=== PATIENT | male | born 1955 | race Caucasian/White ===

== ENCOUNTER 2021-04-05 15:10 | Inpatient (IN) | payer OTHER ==
[~2021-04-05] VITALS: Ht 175.3 cm; Wt 104.3 kg
[~2021-04-05 15:10] MED LIST: ASPI325 PO; CLOP75 PO; IBUP800 PO; LIVALO2 MG PO; Nitroglycerin0.4 MG SL; OXYACE5T PO; ROSU10TA
[2021-04-05 15:25] LABS: Calcium, Ionized (POC) 0.95 mmol/L (1.10-1.46); Chloride (POC) 94 mmol/L (98-108); Glucose (ISTAT POC) 148 mg/dL (70-99); Hemoglobin (POC) 15.3 g/dL (13.5-17.5); Potassium (POC) 3.1 mmol/L (3.5-5.5); Sodium (POC) 130 mmol/L (135-148); Total CO2 (POC) 22 mmol/L (21-32)
[2021-04-05] MEDS ORDERED: LIVALO4 MG PO (15:33)
[2021-04-05] MEDS ORDERED: AMLO5 PO (15:33)
[2021-04-05 15:38] LABS: Hemoglobin 15.3 g/dL (13.5-17.5); Mean Corpuscular HGB 32.6 pg (26.0-34.0); Mean Corpuscular HGB Conc 35.6 g/dL (31.5-36.5); Mean Corpuscular Volume 92 fL (80-100); Mean Platelet Volume 10.7 fL (9.1-12.4); Platelet Count 207 K/mm3 (150-400); RDW Coefficient Variation 12.5 % (11.7-14.2); RDW Standard Deviation 41.6 fL (35.1-46.3); Red Blood Cell Count 4.69 M/mm3 (4.30-5.90); White Blood Cell Count 10.33 K/mm3 (4.00-11.30)
[2021-04-05 15:59] LABS: Base Excess Venous -1.1 mmol/L; Bicarbonate Venous 23.3 mmol/L (24.0-30.0); PO2 Venous 33.3 mmHg (38-42); pH Blood Venous 7.46 (7.34-7.37)
[2021-04-05 16:03] LABS: BAND PERCENT MAN 1 % (0-8); BASOPHILS PERCENT MAN 0 % (0-2); EOSINOPHILS PERCENT MAN 0 % (0-6); LYMPHOCYTES % ATYPICAL MANUAL 1 % (0-0); LYMPHOCYTES ABSOLUTE MAN 0.72 K/mm3 (0.84-5.20); LYMPHOCYTES PERCENT MAN 6 % (21-46); MONOCYTES PERCENT MAN 3 % (4-13); MYELOCYTE PERCENT MAN 1 % (0-0); NEUTROPHILS ABSOLUTE MAN 9.19 K/mm3 (1.96-9.15); SEG NEUTROPHILS PERCENT MAN 88 % (41-73); TOTAL CELLS COUNTED 100
[2021-04-05 16:07] LABS: Troponin I 0.149 ng/mL (0.000-0.040)
[2021-04-05 16:09] LABS: Alanine Aminotransfer (ALT/SGP 55 U/L (12-78); Albumin, Blood 2.5 g/dL (3.4-5.0); Albumin/Globulin Ratio 0.5 (0.8-1.8); Alk Phos 63 U/L (50-136); Anion Gap 17 mmol/L (6-16); Aspartate Aminotrans (AST/SGOT 61 U/L (12-37); Bilirubin, Total 1.4 mg/dL (0.1-1.0); Blood Urea Nitrogen 17 mg/dL (8-24); Bun/Creatinine Ratio 17.1 (12.0-20.0); CO2, Blood 18 mmol/L (21-32); Calcium, Blood 8.1 mg/dL (8.5-10.1); Chloride, Blood 95 mmol/L (98-108); Creatinine, Blood 0.99 mg/dL (0.60-1.20); Globulin, Blood 5.4 g/dL (2.2-4.0); Glomerular Filtration Rate >60 (60-); Glucose, Blood 144 mg/dL (70-99); Potassium, Blood 3.2 mmol/L (3.5-5.5); Sodium, Blood 130 mmol/L (136-145); Total Protein, Blood 7.9 g/dL (6.4-8.2)
[2021-04-05 17:14] LABS: SARS-Cov-2 (COVID-19) PCR, MMC POSITIVE (NEGATIVE)
[2021-04-05 17:35] LABS: International Normalized Ratio 1.51; Prothrombin Time Results 15.9 Sec (9.7-11.5)
[2021-04-05 19:56] LABS: CHOL/HDL RATIO 4.4; Cholesterol 106 mg/dL (50-200); HDL Cholesterol 24 mg/dL (>39); LDL/HDL RATIO 2.2; Low Density Lipoprotein Chol 52 mg/dL (0-110); Triglycerides 148 mg/dL (30-160); Very Low Density Lipoprot Chol 29 mg/dL (6-32)
[2021-04-06 00:18] LABS: BASOPHILS ABSOLUTE AUTO 0.01 K/mm3 (0.00-0.23); BASOPHILS PERCENT AUTO 0 % (0-2); EOSINOPHILS PERCENT AUTO 0 % (0-6); Hematocrit 36.1 % (37.0-53.0); Hemoglobin 12.6 g/dL (13.5-17.5); Mean Corpuscular HGB 32.1 pg (26.0-34.0); Mean Corpuscular HGB Conc 34.9 g/dL (31.5-36.5); Mean Corpuscular Volume 92 fL (80-100); Mean Platelet Volume 10.3 fL (9.1-12.4); Platelet Count 148 K/mm3 (150-400); RDW Coefficient Variation 12.5 % (11.7-14.2); RDW Standard Deviation 42.4 fL (35.1-46.3); Red Blood Cell Count 3.92 M/mm3 (4.30-5.90); White Blood Cell Count 6.26 K/mm3 (4.00-11.30)
[2021-04-06 00:22] LABS: IMMATURE GRAN ABSOLUTE AUTO 0.06 K/mm3 (0.00-0.10); IMMATURE GRAN PERCENT AUTO 1 % (0-1); LYMPHOCYTES ABSOLUTE AUTO 0.53 K/mm3 (0.84-5.20); LYMPHOCYTES PERCENT AUTO 9 % (21-46); MONOCYTES ABSOLUTE AUTO 0.45 K/mm3 (0.16-1.47); MONOCYTES PERCENT AUTO 7 % (4-13); NEUTROPHILS ABSOLUTE AUTO 5.21 K/mm3 (1.96-9.15); NEUTROPHILS PERCENT AUTO 83 % (41-73)
[2021-04-06 00:50] LABS: Alanine Aminotransfer (ALT/SGP 44 U/L (12-78); Albumin, Blood 2.2 g/dL (3.4-5.0); Albumin/Globulin Ratio 0.5 (0.8-1.8); Alk Phos 51 U/L (50-136); Anion Gap 5 mmol/L (6-16); Aspartate Aminotrans (AST/SGOT 42 U/L (12-37); Bilirubin, Total 0.8 mg/dL (0.1-1.0); Blood Urea Nitrogen 18 mg/dL (8-24); CO2, Blood 24 mmol/L (21-32); Calcium, Blood 7.2 mg/dL (8.5-10.1); Chloride, Blood 105 mmol/L (98-108); Globulin, Blood 4.1 g/dL (2.2-4.0); Glomerular Filtration Rate >60 (60-); Glucose, Blood 126 mg/dL (70-99); Potassium, Blood 4.2 mmol/L (3.5-5.5); Sodium, Blood 134 mmol/L (136-145); Total Protein, Blood 6.3 g/dL (6.4-8.2)
--- NOTE | 2021-04-06 07:44 | NUR ---
SHIFT SUMMARY A/O X4, VSS, ON BIPAP, DESATS QUICKLY WHEN OFF, PT SHAVED BY RT, ADMISSION COMPLETED, PT DENIES ANY NEEDS AT THIS TIME. NO ACUTE EVENTS THIS SHIFT. CALL LIGHT IN REACH, REPORT GIVEN TO DAY RN.
--- NOTE | 2021-04-06 10:07 | NUR ---
SPOKE WITH DR. JEFFERSON REGARDING PLAVIX AND HEPARIN USE. HE REPORTED OK TO GIVE PLAVIX IN ADDITION TO HEPARIN DRIP. DR. JEFFERSON REPORTED HE WOULD REVIEW THE REASON FOR CONTINUED PLAVIX USE. WILL CONTINUE TO MONITOR.
--- NOTE | 2021-04-06 11:23 | NUR ---
NOON ASSESSMENT PT WAS SWITCHED FROM BIPAP TO HIGH FLOW NC. PT HAS A DRY COUGHT, TESSLON GIVEN. LUNG SOUND RHONCHOROUS T/O. WILL CONTINUE TO MONITOR.
--- NOTE | 2021-04-06 13:46 | NUR ---
[facility] referral received for spiritual distress. Referral made to Software Recruiterkirstie Kerr, who is able to see pt today. Due to lack of staffing [facility] is unable to see pt today.
--- NOTE | 2021-04-06 14:50 | NUR ---
PT OFFERED TO REPOSITION TO PRONE POSITION FROM SUPINE. PT DECLINED AND REPORTED FEELING COMFORTABLE.
--- NOTE | 2021-04-06 16:46 | NUR ---
Visited with pt after rounding with doctor in the morning. Pt recieved news from doctor that was not positivie. In addition, pt's has cancer and they have a special needs attendant child activity for. Pt is atheist but was receptive to processing news from doctor and his 's health. Pt spoke about his beliefs and then spoke about his family. Circling back I repeated what he said and that I noticed his response this morning as I held the ipad. Pt shared in depth his real concern of if he dies first and how he wants his family to be taken care of in that time. Pt tearfully shared his worries and concerns. Pt recieved neutral prayer for his and current health. Pt is a [place] of 11 years.
[2021-04-06 17:38] LABS: Source, Urine Catheter
[2021-04-06 17:41] LABS: Appearance, Urine Hazy (Clear); Blood, Urine 2+ (Neg); Color, Urine Brown (P-Yellow); Glucose Qualitative, Urine Neg (Neg); Ketones, Urine 1+ (Neg); Leukocyte Esterase, Urine 1+ (Neg); Nitrite, Urine Pos (Neg); Protein, Urine 3+ (Neg); Urobilinogen, Urine 4+ (Normal)
[2021-04-06 17:48] LABS: Bilirubin, Urine 2+ (Neg)
[2021-04-06 17:56] LABS: Bacteria Mod /hpf
--- NOTE | 2021-04-06 18:00 | NUR ---
SHIFT SUMMARY PT WAS CHANGED TO HIGH FLOW NC TODAY AND HAS TOLERATED WELL. HIS RR IS INCREASING TO THE HIGH 20s TO 30s. PT HAS BEEN ENCOURAGED TO ATTEMPT PRONE POSITIONING BUT HAS DECLINED DURING THE DAY, PT EDUCATED TO TRY PRONE POSITIONING FOR SLEEP. JIANG CATHETER PLACED FOR URINARY RETENTION, 1700ML EMPTIED AND PT DECLINED URGE TO VOID. PT ATTEMPTED TO VOID PRIOR TO CATH PLACEMENT AND WAS UNSUCCESSFUL. VSS AT THIS TIME. WILL MONITOR UNTIL REPORT TO DELMA HITCHCOCK.
[2021-04-06 18:01] LABS: Renal Epithelial Rare /hpf (0-Rare); Transitional Epithelial Cells Rare /hpf (0-Rare)
[2021-04-06 18:02] LABS: Granular Casts Rare /lpf (0); Squamous Epithelial Cells Rare /hpf (Few); White Blood Cells, Urine 0-2 /hpf (0-5)
--- NOTE | 2021-04-07 06:39 | NUR ---
SHIFT SUMMARY A/O X4 BUT ANXIOUS, TRIED PRONING BUT PATIENTS SATS DROPPED AND HE PANICED, PLACED BACK ON HIS BACK AND HE WAS UNABLE TO GET HIGHER THAN 85%, CHANGED HIS AIRVO TO BIPAP AT PRIOR SETTINGS AND UPDATED RT, PT REPORTS FEELING ANX/SCARED ABOUT GOING TO SLEEP. JIANG IN PLACE DRAINING TO GRAVITY, OUTPUT APPEARS TO HAVE INCREASING AMOUNTS OF BLOOD PRESENT SO WILL MONITOR LABS. NO OTHER EVENTS THIS SHIFT. CALL LIGHT IN REACH, WILL CTM AND REPORT TO DAY RN.
[2021-04-07 17:00] LABS: Platelet Count 208 K/mm3 (150-400)
--- NOTE | 2021-04-07 17:41 | NUR ---
SHIFT SUMMARY COVID 19 PT AA0X4, CHANGED TO AIRVO THIS MORNING AND TOLERATING WELL. ABLE TO EAT, REPORTS APPETITE RETURNING. RED URINE IN CATHETER THIS AM, IMPROVING TO CRANBERRY COLORED THIS EVENING. PT CALLS APPROPRIATLY. DENIES SOB OR CP.
[2021-04-08 00:35] LABS: BASOPHILS ABSOLUTE AUTO 0.03 K/mm3 (0.00-0.23); BASOPHILS PERCENT AUTO 0 % (0-2); EOSINOPHILS ABSOLUTE AUTO 0.09 K/mm3 (0.00-0.68); EOSINOPHILS PERCENT AUTO 1 % (0-6); Hematocrit 36.2 % (37.0-53.0); Hemoglobin 12.7 g/dL (13.5-17.5); Mean Corpuscular HGB 32.6 pg (26.0-34.0); Mean Corpuscular HGB Conc 35.1 g/dL (31.5-36.5); Mean Corpuscular Volume 93 fL (80-100); Mean Platelet Volume 10.4 fL (9.1-12.4); Platelet Count 203 K/mm3 (150-400); RDW Coefficient Variation 12.6 % (11.7-14.2); RDW Standard Deviation 42.9 fL (35.1-46.3); Red Blood Cell Count 3.89 M/mm3 (4.30-5.90); White Blood Cell Count 7.28 K/mm3 (4.00-11.30)
[2021-04-08 00:36] LABS: IMMATURE GRAN ABSOLUTE AUTO 0.25 K/mm3 (0.00-0.10); IMMATURE GRAN PERCENT AUTO 3 % (0-1); LYMPHOCYTES ABSOLUTE AUTO 0.99 K/mm3 (0.84-5.20); LYMPHOCYTES PERCENT AUTO 14 % (21-46); MONOCYTES ABSOLUTE AUTO 0.35 K/mm3 (0.16-1.47); MONOCYTES PERCENT AUTO 5 % (4-13); NEUTROPHILS ABSOLUTE AUTO 5.57 K/mm3 (1.96-9.15); NEUTROPHILS PERCENT AUTO 77 % (41-73)
[2021-04-08 00:54] LABS: Alanine Aminotransfer (ALT/SGP 35 U/L (12-78); Albumin, Blood 2.2 g/dL (3.4-5.0); Albumin/Globulin Ratio 0.5 (0.8-1.8); Alk Phos 51 U/L (50-136); Anion Gap 7 mmol/L (6-16); Aspartate Aminotrans (AST/SGOT 31 U/L (12-37); Bilirubin, Total 0.5 mg/dL (0.1-1.0); Blood Urea Nitrogen 20 mg/dL (8-24); Bun/Creatinine Ratio 24.5 (12.0-20.0); CO2, Blood 27 mmol/L (21-32); Calcium, Blood 7.6 mg/dL (8.5-10.1); Chloride, Blood 101 mmol/L (98-108); Creatinine, Blood 0.82 mg/dL (0.60-1.20); Globulin, Blood 4.1 g/dL (2.2-4.0); Glomerular Filtration Rate >60 (60-); Glucose, Blood 92 mg/dL (70-99); Potassium, Blood 3.5 mmol/L (3.5-5.5); Sodium, Blood 135 mmol/L (136-145); Total Protein, Blood 6.3 g/dL (6.4-8.2)
--- NOTE | 2021-04-08 06:58 | NUR ---
SHIFT SUMMARY PATIENT IS RESTING COMFORTABLY IN BED. BED IS IN LOW POSITION. BED EXIT ALARM IS ON. CALL LIGHT IS IN REACH. PATIENT DID WELL LAST NIGHT. PATIENT IS ON BIPAP 06/23 75% FIO2 SATURATING >90%. NO COMPLAINTS OF PAIN. VITALS DEVON STABLE DURING THE SHIFT. REPORT GIVEN TO DAY SHIFT.
--- NOTE | 2021-04-08 12:25 | NUR ---
URINE COLOR this morning noted pale pink in the faust tubing, red in collection bag. AT this time, faust bag collection is pale pink, and urine draining in tubing is clear yellow, barely perceptible pink tinge. Spoke with pt about discontinuing faust after lunch, per conversation with Dr. Rangel and the pt this morning by Zoom call.
--- NOTE | 2021-04-08 18:23 | NUR ---
Pt was assisted back into bed after he finished his dinner. Stated that he was so tired from being up in the chair that he was falling asleep sitting up. Stand by assistance only to get back into bed. Dyspnea noted with exertion, while wearing AirVo, but spo2 90-93% immediately after the transfer. Stated that his nose felt plugged up. He blew his nose, and scant amount of blood tinged mucous came out, and he said that it was cleared up. One brief episode of anxiety dropped his spo2 to 83% when he thought that his call light was not within reach. Showed him that it was just beneath his elbow, and afterwards he was able to relax and spo2 improved rapidly back to above 90% without any additional changes to his oxygen delivery by the AirVo.
--- NOTE | 2021-04-09 06:37 | NUR ---
SHIFT SUMMARY PATIENT IS RESTING COMFORTABLY IN BED. BED IS IN LOW POSITION. CALL LIGHT IS IN REACH. PATIENT DID VERY WELL ON THE AIRVO STARTED AT 55L AT 70% AND IS NOT DOWN TO 55L ON 50% SATRATING ABOVE 90% THROUGHOUT THE WHOLE NIGHT. VITALS WERE STABLE. WILL GIVE REPORT TO DAYSHIFT RN.
--- NOTE | 2021-04-09 18:33 | NUR ---
SHIFT SUMMARY PT VITAL SIGNS ARE STABLE.. PT CONTINUES TO EXPRESS FEELINGS OF DEPPRESSION, AND REJECTS ANY IDEA OF MEDS FOR DEPRESSION TREATMENT.PT HAS HAD SEVERALBLOODY URINES. THE HOSPITALIST MD SALONI HAS DECIDED TO HOLD HEPARIN AND PLAVIX UNTIL MORNING. PHARMACY WAS MADE AWARE.
[2021-04-10 04:18] LABS: Hematocrit 36.4 % (37.0-53.0); Hemoglobin 12.7 g/dL (13.5-17.5); Mean Corpuscular HGB 32.4 pg (26.0-34.0); Mean Corpuscular HGB Conc 34.9 g/dL (31.5-36.5); Mean Corpuscular Volume 93 fL (80-100); Mean Platelet Volume 10.7 fL (9.1-12.4); Platelet Count 236 K/mm3 (150-400); RDW Coefficient Variation 12.8 % (11.7-14.2); RDW Standard Deviation 42.7 fL (35.1-46.3); Red Blood Cell Count 3.92 M/mm3 (4.30-5.90); White Blood Cell Count 9.18 K/mm3 (4.00-11.30)
[2021-04-10 04:45] LABS: BAND PERCENT MAN 4 % (0-8); BASOPHILS PERCENT MAN 0 % (0-2); EOSINOPHILS PERCENT MAN 0 % (0-6); LYMPHOCYTES % ATYPICAL MANUAL 1 % (0-0); LYMPHOCYTES ABSOLUTE MAN 0.91 K/mm3 (0.84-5.20); LYMPHOCYTES PERCENT MAN 9 % (21-46); MONOCYTES ABSOLUTE MAN 0.36 K/mm3 (0.16-1.47); MONOCYTES PERCENT MAN 4 % (4-13); NEUTROPHILS ABSOLUTE MAN 7.89 K/mm3 (1.96-9.15); SEG NEUTROPHILS PERCENT MAN 82 % (41-73); TOTAL CELLS COUNTED 100
[2021-04-10 04:48] LABS: Alanine Aminotransfer (ALT/SGP 39 U/L (12-78); Albumin, Blood 2.3 g/dL (3.4-5.0); Albumin/Globulin Ratio 0.6 (0.8-1.8); Alk Phos 50 U/L (50-136); Anion Gap 6 mmol/L (6-16); Aspartate Aminotrans (AST/SGOT 28 U/L (12-37); Bilirubin, Total 0.4 mg/dL (0.1-1.0); Blood Urea Nitrogen 18 mg/dL (8-24); Bun/Creatinine Ratio 23.3 (12.0-20.0); CO2, Blood 26 mmol/L (21-32); Calcium, Blood 8.2 mg/dL (8.5-10.1); Chloride, Blood 104 mmol/L (98-108); Creatinine, Blood 0.77 mg/dL (0.60-1.20); Globulin, Blood 4.1 g/dL (2.2-4.0); Glomerular Filtration Rate >60 (60-); Glucose, Blood 109 mg/dL (70-99); Magnesium, Blood 2.7 mg/dL (1.6-2.4); Potassium, Blood 3.8 mmol/L (3.5-5.5); Sodium, Blood 136 mmol/L (136-145); Total Protein, Blood 6.4 g/dL (6.4-8.2)
--- NOTE | 2021-04-10 06:23 | NUR ---
SHIFT SUMMARY PATIENT FOUND TO BE A PLESANT MAN WHO IS A&OX4, DOUGLAS WITH SOME GENERALIZED WEAKNES. VSS. ON AIRVO 50 L, 45% SATING MID 90'S ALL SHIFT. DRY COUGH BEING DECENTLY CONTROLLED WITH PRN TESSALON PERLS. NSR ON THE MONITOR. TOLERATING REGULAR DIET WITHOUT ISSUE. USING URINAL TO VOID WITH HEMATURIA CONTINUING. HEPARIN ON HOLD DUE TO THIS. NO PAIN OR DISTRESS NOTED UPON ASSESMENT. ENCOURAGING Q2H SELF TURN IN BED. NO ACUTE CONCERNS AT THIS TIME. WILL CONTINUE PLAN OF CARE UNTIL REPORT GIVEN TO KLAUS HITCHCOCK.
--- NOTE | 2021-04-10 18:52 | NUR ---
SHIFT SUMMARY PT'S HEMATURIA HAS DIMINISHED. PT HAS RESUMED HEPARIN THIS AFTERNOON. NO INCREASE OF BLOOD IN URINE. PT IS STABLE AND APPEARS TO BE IN A BETTER MOOD TODAY HE HAS H/O DEPRESSION. NURSE WILL CONTINUE TO MONITOR PT. REPORT WAS GIVEN KHUSHBOO SHIFT NURSE.
[2021-04-11 03:56] LABS: BASOPHILS ABSOLUTE AUTO 0.05 K/mm3 (0.00-0.23); BASOPHILS PERCENT AUTO 1 % (0-2); EOSINOPHILS ABSOLUTE AUTO 0.02 K/mm3 (0.00-0.68); EOSINOPHILS PERCENT AUTO 0 % (0-6); Hematocrit 38.7 % (37.0-53.0); Hemoglobin 13.8 g/dL (13.5-17.5); Mean Corpuscular HGB 32.6 pg (26.0-34.0); Mean Corpuscular HGB Conc 35.7 g/dL (31.5-36.5); Mean Corpuscular Volume 92 fL (80-100); RDW Coefficient Variation 13.1 % (11.7-14.2); RDW Standard Deviation 41.7 fL (35.1-46.3); Red Blood Cell Count 4.23 M/mm3 (4.30-5.90); White Blood Cell Count 10.96 K/mm3 (4.00-11.30)
[2021-04-11 04:00] LABS: IMMATURE GRAN ABSOLUTE AUTO 0.75 K/mm3 (0.00-0.10); IMMATURE GRAN PERCENT AUTO 7 % (0-1); LYMPHOCYTES ABSOLUTE AUTO 1.67 K/mm3 (0.84-5.20); LYMPHOCYTES PERCENT AUTO 15 % (21-46); MONOCYTES ABSOLUTE AUTO 0.91 K/mm3 (0.16-1.47); MONOCYTES PERCENT AUTO 8 % (4-13); Mean Platelet Volume 10.6 fL (9.1-12.4); NEUTROPHILS ABSOLUTE AUTO 7.56 K/mm3 (1.96-9.15); NEUTROPHILS PERCENT AUTO 69 % (41-73); Platelet Count 228 K/mm3 (150-400)
[2021-04-11 04:29] LABS: Anion Gap 8 mmol/L (6-16); Blood Urea Nitrogen 15 mg/dL (8-24); Bun/Creatinine Ratio 22.4 (12.0-20.0); CO2, Blood 21 mmol/L (21-32); Calcium, Blood 7.8 mg/dL (8.5-10.1); Chloride, Blood 107 mmol/L (98-108); Creatinine, Blood 0.67 mg/dL (0.60-1.20); Glomerular Filtration Rate >60 (60-); Glucose, Blood 112 mg/dL (70-99); Magnesium, Blood 2.4 mg/dL (1.6-2.4); Potassium, Blood 4.4 mmol/L (3.5-5.5); Sodium, Blood 136 mmol/L (136-145)
[2021-04-11 04:42] LABS: BAND PERCENT MAN 2 % (0-8); BASOPHILS PERCENT MAN 0 % (0-2); EOSINOPHILS PERCENT MAN 0 % (0-6); LYMPHOCYTES ABSOLUTE MAN 1.42 K/mm3 (0.84-5.20); LYMPHOCYTES PERCENT MAN 13 % (21-46); METAMYELOCYTE PERCENT MAN 1 % (0-0); MONOCYTES ABSOLUTE MAN 1.31 K/mm3 (0.16-1.47); MONOCYTES PERCENT MAN 12 % (4-13); NEUTROPHILS ABSOLUTE MAN 8.11 K/mm3 (1.96-9.15); SEG NEUTROPHILS PERCENT MAN 72 % (41-73); TOTAL CELLS COUNTED 100
--- NOTE | 2021-04-11 05:43 | NUR ---
SHIFT SUMMARY PATIENT A PLEASANT MAN WHO IS A&OX4, FOLLOWING COMMANDS, WITH SOME GENERALIXED WEAKNESS WHICH IS IMPROVING. VSS. ON AIRVO 40L, 45% SATING MID 90'S ALL SHIFT. NSR IN THE 70'S. DRY COUGH IMPROVING AND PRN TESSALON HELPS WITH THIS. TOLERATING REGULAR DIET WITHOUT ISSUE. VOIDING WELL PER URINAL WITH NO HEMATURIA NOTED ALL SHIFT. HEPARIN AND FLUIDS RUNNING PER ORDER.NO PAIN OR DISTRESS NOTED UPON ASSESSMENT. NO ACUTE CONCERNS AT THIS TIME. WILL CONTINUE PLAN OF CARE UNTIL REPORT GIVEN TO DAYSHIFT RN.
--- NOTE | 2021-04-11 18:38 | NUR ---
SHIFT SUMMARY VITAL SIGNS ARE STABLE AND CALL IS WITHIN PT'S REACH. HEPARIN iv IS RUNNING @22.5 UNITS/KG/HR. PT CONTINUES TO DISPLAY AN IMPROVED MOOD TOWARDS RECCOVERY. NURSE WILL GIVE REPORT TO WALLPAPER EMBOSSER HELPER NURSE.
[2021-04-12 04:26] LABS: BASOPHILS ABSOLUTE AUTO 0.07 K/mm3 (0.00-0.23); BASOPHILS PERCENT AUTO 1 % (0-2); EOSINOPHILS ABSOLUTE AUTO 0.02 K/mm3 (0.00-0.68); EOSINOPHILS PERCENT AUTO 0 % (0-6); Hematocrit 39.4 % (37.0-53.0); Hemoglobin 13.9 g/dL (13.5-17.5); IMMATURE GRAN ABSOLUTE AUTO 0.69 K/mm3 (0.00-0.10); IMMATURE GRAN PERCENT AUTO 7 % (0-1); LYMPHOCYTES ABSOLUTE AUTO 1.68 K/mm3 (0.84-5.20); LYMPHOCYTES PERCENT AUTO 18 % (21-46); MONOCYTES ABSOLUTE AUTO 0.89 K/mm3 (0.16-1.47); MONOCYTES PERCENT AUTO 10 % (4-13); Mean Corpuscular HGB 32.8 pg (26.0-34.0); Mean Corpuscular HGB Conc 35.3 g/dL (31.5-36.5); Mean Corpuscular Volume 93 fL (80-100); Mean Platelet Volume 10.2 fL (9.1-12.4); NEUTROPHILS ABSOLUTE AUTO 6.01 K/mm3 (1.96-9.15); NEUTROPHILS PERCENT AUTO 64 % (41-73); Platelet Count 283 K/mm3 (150-400); RDW Coefficient Variation 13.1 % (11.7-14.2); RDW Standard Deviation 43.8 fL (35.1-46.3); Red Blood Cell Count 4.24 M/mm3 (4.30-5.90); White Blood Cell Count 9.36 K/mm3 (4.00-11.30)
[2021-04-12 04:44] LABS: Anion Gap 6 mmol/L (6-16); Blood Urea Nitrogen 14 mg/dL (8-24); Bun/Creatinine Ratio 19.6 (12.0-20.0); CO2, Blood 26 mmol/L (21-32); Calcium, Blood 8.4 mg/dL (8.5-10.1); Chloride, Blood 104 mmol/L (98-108); Creatinine, Blood 0.72 mg/dL (0.60-1.20); Glomerular Filtration Rate >60 (60-); Glucose, Blood 82 mg/dL (70-99); Magnesium, Blood 2.5 mg/dL (1.6-2.4); Phosphorus, Blood 3.6 mg/dL (2.5-4.9); Potassium, Blood 3.6 mmol/L (3.5-5.5); Sodium, Blood 136 mmol/L (136-145)
[2021-04-12 05:09] LABS: BAND PERCENT MAN 2 % (0-8); BASOPHILS PERCENT MAN 0 % (0-2); EOSINOPHILS PERCENT MAN 0 % (0-6); LYMPHOCYTES ABSOLUTE MAN 1.31 K/mm3 (0.84-5.20); LYMPHOCYTES PERCENT MAN 14 % (21-46); METAMYELOCYTE ABSOLUTE MAN 0.28 K/mm3 (0.00-0.00); METAMYELOCYTE PERCENT MAN 3 % (0-0); MONOCYTES ABSOLUTE MAN 1.31 K/mm3 (0.16-1.47); MONOCYTES PERCENT MAN 14 % (4-13); NEUTROPHILS ABSOLUTE MAN 6.45 K/mm3 (1.96-9.15); SEG NEUTROPHILS PERCENT MAN 67 % (41-73); TOTAL CELLS COUNTED 100
--- NOTE | 2021-04-12 07:14 | NUR ---
SHIFT SUMMARY PT A/OX4. ALERT, PLEASANT AT BEDSIDE. CALLS APPROPRIATELY. HAS HEPARIN INFUSING ORDERED AND CONT. TO MONITOR. GOOD ORAL INTAKE ON A REGULAR DIET. ON TELE AT NSR. USING AIRVO AT 40L AND 40% FIO2 MAINTAINING 02 ABOVE 92%. USING URINAL AT BEDSIDE; YELLOW/MINESH IN COLOR. NO HEMATURIA. DENIES ANY PAIN. OCCASIONAL COUGH. NO ACUTE CHANGES.
--- NOTE | 2021-04-12 09:00 | NUR ---
CARE ASSUMPTION PATIENT IS A/O X4. VSS. TELE SR. SPO2 >90% ON AIRVO 40L 40%. NO CHEST PAIN, SHORTNESS OF BREATH, OR PAIN. CALL LIGHT WITHIN REACH AND BED IN LOWEST POSITION. WILL CONTIUE TO MONITOR AND PROVIDE CARE.
--- NOTE | 2021-04-12 16:55 | NUR ---
SHIFT SUMMARY PATIENT IS A/O X4. VSS. SPO2 >90% ON HIGH FLOW NC AT 8L. TELE SR. PATIENT REPORTS NO CHEST PAIN, PAIN, OR SOB. PATIENT HAS A NONPRODUCTIVE COUGH. NO ACUTE CHANGES THIS SHIFT. CALL LIGHT WITHIN REACH AND BED IN LOWEST POSITION. WILL CONTINUE TO MONITOR AND PROVIDE CARE UNTIL HAND OFF WITH NEXT SHIFT.
[2021-04-13 04:14] LABS: BASOPHILS ABSOLUTE AUTO 0.09 K/mm3 (0.00-0.23); BASOPHILS PERCENT AUTO 1 % (0-2); EOSINOPHILS ABSOLUTE AUTO 0.03 K/mm3 (0.00-0.68); EOSINOPHILS PERCENT AUTO 0 % (0-6); Hematocrit 46.3 % (37.0-53.0); Hemoglobin 15.9 g/dL (13.5-17.5); IMMATURE GRAN ABSOLUTE AUTO 0.65 K/mm3 (0.00-0.10); IMMATURE GRAN PERCENT AUTO 5 % (0-1); LYMPHOCYTES ABSOLUTE AUTO 2.16 K/mm3 (0.84-5.20); LYMPHOCYTES PERCENT AUTO 18 % (21-46); MONOCYTES ABSOLUTE AUTO 1.19 K/mm3 (0.16-1.47); MONOCYTES PERCENT AUTO 10 % (4-13); Mean Corpuscular HGB 32.4 pg (26.0-34.0); Mean Corpuscular HGB Conc 34.3 g/dL (31.5-36.5); Mean Corpuscular Volume 94 fL (80-100); Mean Platelet Volume 10.2 fL (9.1-12.4); NEUTROPHILS ABSOLUTE AUTO 7.91 K/mm3 (1.96-9.15); NEUTROPHILS PERCENT AUTO 66 % (41-73); Platelet Count 351 K/mm3 (150-400); RDW Coefficient Variation 13.2 % (11.7-14.2); RDW Standard Deviation 45.3 fL (35.1-46.3); Red Blood Cell Count 4.91 M/mm3 (4.30-5.90); White Blood Cell Count 12.03 K/mm3 (4.00-11.30)
[2021-04-13 04:31] LABS: Anion Gap 6 mmol/L (6-16); Blood Urea Nitrogen 16 mg/dL (8-24); Bun/Creatinine Ratio 18.4 (12.0-20.0); C-REACTIVE PROTEIN, EXT RANGE 0.837 mg/dL (0.000-0.300); CO2, Blood 29 mmol/L (21-32); Calcium, Blood 8.9 mg/dL (8.5-10.1); Chloride, Blood 102 mmol/L (98-108); Creatinine, Blood 0.87 mg/dL (0.60-1.20); Glomerular Filtration Rate >60 (60-); Glucose, Blood 86 mg/dL (70-99); Potassium, Blood 3.8 mmol/L (3.5-5.5); Sodium, Blood 137 mmol/L (136-145)
[2021-04-13 04:36] LABS: BAND PERCENT MAN 3 % (0-8); BASOPHILS PERCENT MAN 0 % (0-2); EOSINOPHILS PERCENT MAN 0 % (0-6); LYMPHOCYTES ABSOLUTE MAN 2.76 K/mm3 (0.84-5.20); LYMPHOCYTES PERCENT MAN 23 % (21-46); METAMYELOCYTE ABSOLUTE MAN 0.24 K/mm3 (0.00-0.00); METAMYELOCYTE PERCENT MAN 2 % (0-0); MONOCYTES ABSOLUTE MAN 1.08 K/mm3 (0.16-1.47); MONOCYTES PERCENT MAN 9 % (4-13); MYELOCYTE ABSOLUTE MAN 0.24 K/mm3 (0.00-0.00); MYELOCYTE PERCENT MAN 2 % (0-0); NEUTROPHILS ABSOLUTE MAN 7.69 K/mm3 (1.96-9.15); SEG NEUTROPHILS PERCENT MAN 61 % (41-73); TOTAL CELLS COUNTED 100
--- NOTE | 2021-04-13 07:19 | NUR ---
SHIFT SUMMARY PT A/O X4. CALLS APPROPRIATE. CONT. ON TELE AT NSR IN THE 80'S-90'S. ON 6L HFNC 02 ABOVE 92%. DENIED ANY PAIN. CONT. TO USE URINAL; URINE YELLOW IN COLOR. CONT'S ON HEPARIN DRIP PER PHARMACY/DOC ORDERS CONT. ALL NIGHT ON SAME DOSE. VSS. NO ACUTE CHANGES.
--- NOTE | 2021-04-13 08:15 | NUR ---
CARE ASSUMPTION PATIENT A/OX4. VSS. SPO2 >90% ON 7L FLOW NC. TELE SINUS. PATIENT REPORTS NO CHEST PAIN, SOB, OR PAIN. CALL LIGHT WITHIN REACH. HERPAIN DRIP INFUSING AT 21UNITS/KG/HR, 2RN VERIFIED. CALL LIGHT WITHIN REACH AND BED IN LOWEST POSITION. WILL CONTINUE TO MONITOR AND PROVIDE CARE.
--- NOTE | 2021-04-13 11:30 | NUR ---
AMBULATION PATIENT ON HIGH FLOW NC 8L AND AMBULATED TO THE BATHROOM WITH SBA. PATIENT SPO2 SATS DROPPED INTO HIGH 80S WHEN PATIENT WAS TRYING TO HAVE A BM. PATIENT REPORTS HE IS CONSTIPATED. PATIENT RECOVERED QUICKLY INTO 90S WHEN REMINDED TO BREATH. PATIENT AMBULATED BACK, AND WENT TO 12L HIGH FLOW NC. PATIENT STATED UPON RETURN TO BED THAT HE FELT TIRED AND WEAK. VSS. SPO2 >90%. CALL LIGHT WITHIN REACH.
--- NOTE | 2021-04-13 16:50 | NUR ---
PATIENT TO MEDICAL PATIENT WENT TO MEDICAL FLOOR VIA WHEELCHAIR . ALL PERSONAL BELONGINGS WITH PATIENT. PATIENT IS A/0 X4. VSS. SPO2 >90% ON NC 6L. TELE SR @68. PATIENT REPORTED NO CHEST PAIN, SOB, OR PAIN. NO ACUTE CHANGES THIS SHIFT.
--- NOTE | 2021-04-13 16:59 | NUR ---
REPORT TO CHRIS RN REPORT GIVEN TO JYOTI HITCHCOCK ON MEDICAL FLOOR. PATIENT WILL BE GOING TO ROOM 313 BED 2.
--- NOTE | 2021-04-13 17:10 | NUR ---
Assumed Care Received report from Merry Monsalve TIRE ADJUSTER, patient arrived via w/c with three personal belongings bag. Heparin infusing @ 22 u/kg/hr. Patient called to notify of transfer. Settled to room. Back on continuous biox. Nonproductive cough. Call light in reach. Dinner arrived and patient having dinner in room. ANTON.
[2021-04-14 05:52] LABS: BASOPHILS ABSOLUTE AUTO 0.08 K/mm3 (0.00-0.23); BASOPHILS PERCENT AUTO 1 % (0-2); EOSINOPHILS ABSOLUTE AUTO 0.02 K/mm3 (0.00-0.68); EOSINOPHILS PERCENT AUTO 0 % (0-6); Hematocrit 46.2 % (37.0-53.0); Hemoglobin 16.2 g/dL (13.5-17.5); IMMATURE GRAN ABSOLUTE AUTO 0.51 K/mm3 (0.00-0.10); IMMATURE GRAN PERCENT AUTO 5 % (0-1); LYMPHOCYTES ABSOLUTE AUTO 2.26 K/mm3 (0.84-5.20); LYMPHOCYTES PERCENT AUTO 21 % (21-46); MONOCYTES ABSOLUTE AUTO 0.86 K/mm3 (0.16-1.47); MONOCYTES PERCENT AUTO 8 % (4-13); Mean Corpuscular HGB 33.1 pg (26.0-34.0); Mean Corpuscular HGB Conc 35.1 g/dL (31.5-36.5); Mean Corpuscular Volume 94 fL (80-100); NEUTROPHILS ABSOLUTE AUTO 7.21 K/mm3 (1.96-9.15); NEUTROPHILS PERCENT AUTO 66 % (41-73); Platelet Count 309 K/mm3 (150-400); RDW Coefficient Variation 13.4 % (11.7-14.2); RDW Standard Deviation 45.6 fL (35.1-46.3); White Blood Cell Count 10.94 K/mm3 (4.00-11.30)
[2021-04-14 06:16] LABS: Albumin, Blood 2.9 g/dL (3.4-5.0); Anion Gap 8 mmol/L (6-16); Blood Urea Nitrogen 16 mg/dL (8-24); CO2, Blood 27 mmol/L (21-32); Calcium, Blood 9.1 mg/dL (8.5-10.1); Chloride, Blood 101 mmol/L (98-108); Glomerular Filtration Rate >60 (60-); Glucose, Blood 86 mg/dL (70-99); Phosphorus, Blood 4.1 mg/dL (2.5-4.9); Potassium, Blood 3.7 mmol/L (3.5-5.5); Sodium, Blood 136 mmol/L (136-145)
--- NOTE | 2021-04-14 08:07 | NUR ---
PATIENT VERY ANXIOUS ABOUT WAITING FOR LUNG BX. ALSO ANGRY ABOUT HAVING TO SHARE A ROOM "WITH A COVID PATIENT". VERY ABUSIVE AND UNCOOPERATIVE INITIALLY, AND PATIENT WAS LITERALLY SHAKING WITH ANGER THAT HE COULDN'T EXPLAIN ANY BETTER THAN HE WANTED TO GO HOME. TRIED TO REASSURE PATIENT THAT WITH THE CLOTS FOUND IN HIS LUNGS, THE SAFEST PLACE FOR HIM TO BE WAS IN THE HOSPITAL, AND THE MEDICATION (HEPARIN) HE WAS RECEIVING, WILL HELP RESOLVE THE CLOTS. ROUTINELY, FOR SAFETY REASONS, 'Chandni DO NOT LIKE TO DO BIOPSY'S WHILE PATIENTS ARE ON IV ANTICOAGULANTS. ENCOURAGED PATIENT TO ASK QUESTIONS OF THE HOSPITALIST IN THE MORNING TO FURTHER UNDERSTAND WHEN HE CAN EXPECT TO HAVE BIOPSY
--- NOTE | 2021-04-14 15:32 | NUR ---
HEPARIN GTT STOPPED PER PHARMACY
--- NOTE | 2021-04-14 16:20 | NUR ---
CARE TRANSFERRED TO VARGHESE PEARL RN. SBAR REPORT.
--- NOTE | 2021-04-14 18:14 | NUR ---
PATIENT PLEASNT TO INTERACTION, STATES HE LOVES THE ROOM BETTER THAN THE OLD ONE, WANTING TO BE DISCARGED HOME TOMORROW AND CONITNUE ON TO HAVE THE MASS BIOPSIED, VS REVEIWED, MAKES NEEDS KNOWN, CALL LIGHT WITH IN REACH
--- NOTE | 2021-04-15 05:19 | NUR ---
PT with covid 19 bilat PE conties to wean down on oxygen to 2 l with bioxx wireless. PT started on oral anticoag to tx bilat PE. Has new dx lung mass rt upper lobe. Pleasant & cooperative.
[2021-04-15 05:55] LABS: BASOPHILS ABSOLUTE AUTO 0.03 K/mm3 (0.00-0.23); BASOPHILS PERCENT AUTO 0 % (0-2); EOSINOPHILS ABSOLUTE AUTO 0.01 K/mm3 (0.00-0.68); EOSINOPHILS PERCENT AUTO 0 % (0-6); Hematocrit 43.3 % (37.0-53.0); Hemoglobin 15.4 g/dL (13.5-17.5); IMMATURE GRAN ABSOLUTE AUTO 0.25 K/mm3 (0.00-0.10); IMMATURE GRAN PERCENT AUTO 3 % (0-1); LYMPHOCYTES ABSOLUTE AUTO 1.73 K/mm3 (0.84-5.20); LYMPHOCYTES PERCENT AUTO 18 % (21-46); MONOCYTES ABSOLUTE AUTO 0.89 K/mm3 (0.16-1.47); MONOCYTES PERCENT AUTO 9 % (4-13); Mean Corpuscular HGB Conc 35.6 g/dL (31.5-36.5); Mean Corpuscular Volume 93 fL (80-100); Mean Platelet Volume 10.2 fL (9.1-12.4); NEUTROPHILS ABSOLUTE AUTO 6.96 K/mm3 (1.96-9.15); NEUTROPHILS PERCENT AUTO 71 % (41-73); Platelet Count 287 K/mm3 (150-400); RDW Coefficient Variation 13.4 % (11.7-14.2); RDW Standard Deviation 44.6 fL (35.1-46.3); Red Blood Cell Count 4.67 M/mm3 (4.30-5.90); White Blood Cell Count 9.87 K/mm3 (4.00-11.30)
[2021-04-15 06:22] LABS: Alanine Aminotransfer (ALT/SGP 70 U/L (12-78); Albumin/Globulin Ratio 0.7 (0.8-1.8); Alk Phos 78 U/L (50-136); Anion Gap 8 mmol/L (6-16); Aspartate Aminotrans (AST/SGOT 33 U/L (12-37); Bilirubin, Total 0.9 mg/dL (0.1-1.0); Blood Urea Nitrogen 18 mg/dL (8-24); C-REACTIVE PROTEIN, EXT RANGE 0.587 mg/dL (0.000-0.300); CO2, Blood 25 mmol/L (21-32); Calcium, Blood 9.1 mg/dL (8.5-10.1); Chloride, Blood 102 mmol/L (98-108); Creatinine, Blood 0.82 mg/dL (0.60-1.20); Globulin, Blood 4.4 g/dL (2.2-4.0); Glomerular Filtration Rate >60 (60-); Glucose, Blood 97 mg/dL (70-99); Magnesium, Blood 2.4 mg/dL (1.6-2.4); Phosphorus, Blood 3.8 mg/dL (2.5-4.9); Potassium, Blood 3.5 mmol/L (3.5-5.5); Sodium, Blood 135 mmol/L (136-145); Total Protein, Blood 7.4 g/dL (6.4-8.2)
[2021-04-15 06:31] LABS: International Normalized Ratio 1.08; Prothrombin Time Results 11.3 Sec (9.7-11.5)
[2021-04-15] MEDS ORDERED: Tylenol PR (11:59)
[2021-04-15] MEDS ORDERED: ASCO500 PO (12:00)
[2021-04-15] MEDS ORDERED: BENZ100A PO (12:00)
[2021-04-15] MEDS ORDERED: COMBIVENT RESPIM4 G1 INH (12:01)
[2021-04-15] MEDS ORDERED: Prednisone10 MG PO (12:01)
[2021-04-15] MEDS ORDERED: PANT20 PO (12:02)
[2021-04-15] MEDS ORDERED: VISBIOME 112.51 EACH PO (12:02)
[2021-04-15] MEDS ORDERED: XARELTO15 MG PO (12:02)
[2021-04-15] MEDS ORDERED: ZINC220 PO (12:03)
[2021-04-15] MEDS ORDERED: VITAMIN D31000 UNI1 PO (12:03)
--- NOTE | 2021-04-15 12:17 | NUR ---
PATIENT WORKED WITH PT, AMBULATED IN HALLS, EATING LUNCH NOW, CALL LIGHT WITH IN REACH
--- NOTE | 2021-04-15 12:21 | NUR ---
DR BULLOCK ROUNDED ON PATIENT, PATIENT QUALIFIED FOR HOME OXYGEN USE, EATING LUNCH NOW
== END 2021-04-15 14:40 | disposition home or self-care (01) | DRG 177 ==
LOC: ER 15:10 → MEDS 18:22 → SURS 18:22 → ERHOLD 18:22 → SURS 21:55 → MEDS 04-13 17:10
PROVIDERS: Emergency Medicine; Family Medicine; Internal Medicine; Pharmacist; ADMIT Hospitalist
PROC: 8E0ZXY6 Isolation (ICD-10-PCS; principal; 2021-04-05)
PROC: XW033E5 Introduction of Remdesivir Anti-infective into Peripheral Vein, Percutaneous Approach, New Technology Group 5 (ICD-10-PCS; 2021-04-05)
PROC: 3E033XZ Introduction of Vasopressor into Peripheral Vein, Percutaneous Approach (ICD-10-PCS; 2021-04-05)
PROC: 5A09457 Assistance with Respiratory Ventilation, 24-96 Consecutive Hours, Continuous Positive Airway Pressure (ICD-10-PCS; 2021-04-05)
DX: U07.1 COVID-19 (principal); J96.01 Acute respiratory failure with hypoxia; I21.A1 Myocardial infarction type 2; J12.82 Pneumonia due to coronavirus disease 2019; I26.99 Other pulmonary embolism without acute cor pulmonale; J44.0 Chronic obstructive pulmonary disease with (acute) lower respiratory infection; R91.8 Other nonspecific abnormal finding of lung field; R33.9 Retention of urine, unspecified; E78.00 Pure hypercholesterolemia, unspecified; E66.9 Obesity, unspecified; I25.10 Atherosclerotic heart disease of native coronary artery without angina pectoris; E78.5 Hyperlipidemia, unspecified; R31.9 Hematuria, unspecified; Z68.34 Body mass index [BMI] 34.0-34.9, adult; Z90.49 Acquired absence of other specified parts of digestive tract; Z95.5 Presence of coronary angioplasty implant and graft; Z88.8 Allergy status to other drugs, medicaments and biological substances; Z87.891 Personal history of nicotine dependence; Z79.02 Long term (current) use of antithrombotics/antiplatelets; Z79.82 Long term (current) use of aspirin; Z79.899 Other long term (current) drug therapy
CPT/HCPCS: 36415; 51702; 71045; 71260; 80047; 80048; 80053; 80061; 80069; 81001; 82728; 82803; 82947; 83735; 83880; 84100; 84145; 84443; 84484; 85014; 85025; 85049; 85379; 85610; 85730; 86140; 86141; 87086; 93005; 93010; 93306; 94660; 94761; 94762; 96365-59; 96366-59; 96368; 96375-59; 99285-25; A9270; C9113; J1100; J1644; J2405; J3480; J7030; Q9967; U0004

== ENCOUNTER → 2021-04-30 | Outpatient (CLI) | payer OTHER ==
[~2021-04-30] MED LIST changes: +AMLO5 PO; +ASCO500 PO; +BENZ100A PO; +COMBIVENT RESPIM4 G1 INH; +LIVALO4 MG PO; +PANT20 PO; +Prednisone10 MG PO; +Tylenol PR; +VISBIOME 112.51 EACH PO; +VITAMIN D31000 UNI1 PO; +XARELTO15 MG PO; +ZINC220 PO
[2021-04-30 17:42] LABS: BASOPHILS ABSOLUTE AUTO 0.05 K/mm3 (0.00-0.23); BASOPHILS PERCENT AUTO 1 % (0-2); EOSINOPHILS ABSOLUTE AUTO 0.15 K/mm3 (0.00-0.68); EOSINOPHILS PERCENT AUTO 2 % (0-6); Hematocrit 37.4 % (37.0-53.0); Hemoglobin 13.3 g/dL (13.5-17.5); IMMATURE GRAN ABSOLUTE AUTO 0.09 K/mm3 (0.00-0.10); IMMATURE GRAN PERCENT AUTO 1 % (0-1); LYMPHOCYTES ABSOLUTE AUTO 1.64 K/mm3 (0.84-5.20); LYMPHOCYTES PERCENT AUTO 21 % (21-46); MONOCYTES ABSOLUTE AUTO 0.94 K/mm3 (0.16-1.47); MONOCYTES PERCENT AUTO 12 % (4-13); Mean Corpuscular HGB 33.4 pg (26.0-34.0); Mean Corpuscular HGB Conc 35.6 g/dL (31.5-36.5); Mean Corpuscular Volume 94 fL (80-100); Mean Platelet Volume 10.3 fL (9.1-12.4); NEUTROPHILS ABSOLUTE AUTO 4.95 K/mm3 (1.96-9.15); NEUTROPHILS PERCENT AUTO 63 % (41-73); Platelet Count 247 K/mm3 (150-400); RDW Coefficient Variation 13.8 % (11.7-14.2); RDW Standard Deviation 47.2 fL (35.1-46.3); Red Blood Cell Count 3.98 M/mm3 (4.30-5.90); White Blood Cell Count 7.82 K/mm3 (4.00-11.30)
[2021-04-30 19:13] LABS: Alanine Aminotransfer (ALT/SGP 71 U/L (12-78); Albumin, Blood 3.4 g/dL (3.4-5.0); Albumin/Globulin Ratio 0.7 (0.8-1.8); Alk Phos 103 U/L (50-136); Anion Gap 9 mmol/L (6-16); Aspartate Aminotrans (AST/SGOT 36 U/L (12-37); Bilirubin, Total 0.9 mg/dL (0.1-1.0); Blood Urea Nitrogen 14 mg/dL (8-24); Bun/Creatinine Ratio 17.2 (12.0-20.0); CO2, Blood 22 mmol/L (21-32); Calcium, Blood 9.3 mg/dL (8.5-10.1); Chloride, Blood 105 mmol/L (98-108); Creatinine, Blood 0.81 mg/dL (0.60-1.20); Globulin, Blood 4.7 g/dL (2.2-4.0); Glomerular Filtration Rate >60 (60-); Glucose, Blood 88 mg/dL (70-99); Sodium, Blood 136 mmol/L (136-145); Total Protein, Blood 8.1 g/dL (6.4-8.2)
== END | disposition home or self-care (01) ==
LOC: LAB SHORT 15:00 → LAB 15:00
PROVIDERS: Nurse Practitioner Family
DX: I26.99 Other pulmonary embolism without acute cor pulmonale (principal); R97.20 Elevated prostate specific antigen [PSA]
CPT/HCPCS: 80053; 84153; 85025

== ENCOUNTER → 2021-07-09 | Outpatient (CLI) | payer OTHER ==
[2021-07-09 18:23] LABS: Percent Saturation 25.9 % (20.0-50.0)
[2021-07-09 18:26] LABS: BASOPHILS ABSOLUTE AUTO 0.08 K/mm3 (0.00-0.23); BASOPHILS PERCENT AUTO 1 % (0-2); EOSINOPHILS ABSOLUTE AUTO 0.18 K/mm3 (0.00-0.68); EOSINOPHILS PERCENT AUTO 2 % (0-6); Hematocrit 45.3 % (37.0-53.0); Hemoglobin 15.5 g/dL (13.5-17.5); IMMATURE GRAN ABSOLUTE AUTO 0.04 K/mm3 (0.00-0.10); IMMATURE GRAN PERCENT AUTO 1 % (0-1); LYMPHOCYTES ABSOLUTE AUTO 1.72 K/mm3 (0.84-5.20); LYMPHOCYTES PERCENT AUTO 22 % (21-46); MONOCYTES PERCENT AUTO 12 % (4-13); Mean Corpuscular HGB 32.7 pg (26.0-34.0); Mean Corpuscular HGB Conc 34.2 g/dL (31.5-36.5); Mean Corpuscular Volume 96 fL (80-100); Mean Platelet Volume 10.4 fL (9.1-12.4); NEUTROPHILS ABSOLUTE AUTO 4.78 K/mm3 (1.96-9.15); NEUTROPHILS PERCENT AUTO 62 % (41-73); Platelet Count 204 K/mm3 (150-400); RDW Coefficient Variation 12.8 % (11.7-14.2); RDW Standard Deviation 44.9 fL (35.1-46.3); Red Blood Cell Count 4.74 M/mm3 (4.30-5.90)
== END | disposition home or self-care (01) ==
LOC: LAB SHORT 14:02
PROVIDERS: Nurse Practitioner Family
DX: D64.9 Anemia, unspecified (principal)
CPT/HCPCS: 82607; 82728; 82746; 83540; 83550; 85025

== ENCOUNTER → 2022-06-01 | Outpatient (CLI) | payer MEDICARE, OTHER ==
[2022-06-01 19:34] LABS: BASOPHILS ABSOLUTE AUTO 0.08 K/mm3 (0.00-0.23); BASOPHILS PERCENT AUTO 1 % (0-2); EOSINOPHILS ABSOLUTE AUTO 0.08 K/mm3 (0.00-0.68); EOSINOPHILS PERCENT AUTO 1 % (0-6); Hematocrit 47.3 % (37.0-53.0); Hemoglobin 16.6 g/dL (13.5-17.5); IMMATURE GRAN ABSOLUTE AUTO 0.06 K/mm3 (0.00-0.10); IMMATURE GRAN PERCENT AUTO 1 % (0-1); LYMPHOCYTES ABSOLUTE AUTO 1.73 K/mm3 (0.84-5.20); LYMPHOCYTES PERCENT AUTO 23 % (21-46); MONOCYTES ABSOLUTE AUTO 0.65 K/mm3 (0.16-1.47); MONOCYTES PERCENT AUTO 9 % (4-13); Mean Corpuscular HGB 32.9 pg (26.0-34.0); Mean Corpuscular HGB Conc 35.1 g/dL (31.5-36.5); Mean Corpuscular Volume 94 fL (80-100); Mean Platelet Volume 11.9 fL (9.1-12.4); NEUTROPHILS ABSOLUTE AUTO 4.91 K/mm3 (1.96-9.15); NEUTROPHILS PERCENT AUTO 65 % (41-73); RDW Coefficient Variation 12.8 % (11.7-14.2); RDW Standard Deviation 44.2 fL (35.1-46.3); Red Blood Cell Count 5.04 M/mm3 (4.30-5.90); White Blood Cell Count 7.51 K/mm3 (4.00-11.30)
[2022-06-01 19:35] LABS: Platelet Count 155 K/mm3 (150-400)
[2022-06-01 19:47] LABS: Alanine Aminotransfer (ALT/SGP 50 U/L (12-78); Albumin/Globulin Ratio 1.1 (0.8-1.8); Alk Phos 82 U/L (50-136); Anion Gap 6 mmol/L (6-16); Aspartate Aminotrans (AST/SGOT 40 U/L (12-37); Bilirubin, Total 0.8 mg/dL (0.1-1.0); Blood Urea Nitrogen 8 mg/dL (8-24); Bun/Creatinine Ratio 8.2 (12.0-20.0); CHOL/HDL RATIO 2.8; CO2, Blood 29 mmol/L (21-32); Calcium, Blood 9.2 mg/dL (8.5-10.1); Chloride, Blood 102 mmol/L (98-108); Cholesterol 207 mg/dL (50-200); Creatinine, Blood 0.97 mg/dL (0.60-1.20); Ferritin, Serum 423 ng/mL (26-388); Globulin, Blood 3.8 g/dL (2.2-4.0); Glomerular Filtration Rate 87 (60-); Glucose, Blood 99 mg/dL (70-99); HDL Cholesterol 73 mg/dL (>39); Iron Serum 212 ug/dL (65-175); LDL/HDL RATIO 1.6; Low Density Lipoprotein Chol 116 mg/dL (0-110); Percent Saturation 60.1 % (20.0-50.0); Potassium, Blood 4.1 mmol/L (3.5-5.5); Sodium, Blood 137 mmol/L (136-145); Total Iron Binding Capacity 353 ug/dL (250-450); Total Protein, Blood 7.8 g/dL (6.4-8.2); Triglycerides 89 mg/dL (30-160); Very Low Density Lipoprot Chol 17 mg/dL (6-32)
== END | disposition home or self-care (01) ==
LOC: LAB 16:32 → LAB SHORT 16:32
PROVIDERS: Nurse Practitioner Family
DX: I25.10 Atherosclerotic heart disease of native coronary artery without angina pectoris (principal); D64.9 Anemia, unspecified; I10 Essential (primary) hypertension; R97.20 Elevated prostate specific antigen [PSA]; R73.09 Other abnormal glucose
CPT/HCPCS: 80053; 80061; 82728; 83036; 83540; 83550; 84153; 84443; 85025

== ENCOUNTER → 2023-06-08 | Outpatient (CLI) | payer MEDICARE, OTHER ==
[2023-06-08 19:49] LABS: BASOPHILS ABSOLUTE AUTO 0.06 K/mm3 (0.00-0.23); BASOPHILS PERCENT AUTO 1 % (0-2); EOSINOPHILS ABSOLUTE AUTO 0.06 K/mm3 (0.00-0.68); EOSINOPHILS PERCENT AUTO 1 % (0-6); Hematocrit 40.1 % (37.0-53.0); Hemoglobin 13.9 g/dL (13.5-17.5); IMMATURE GRAN ABSOLUTE AUTO 0.03 K/mm3 (0.00-0.10); IMMATURE GRAN PERCENT AUTO 1 % (0-1); LYMPHOCYTES ABSOLUTE AUTO 1.53 K/mm3 (0.84-5.20); LYMPHOCYTES PERCENT AUTO 27 % (21-46); MONOCYTES PERCENT AUTO 9 % (4-13); Mean Corpuscular HGB 32.9 pg (26.0-34.0); Mean Corpuscular HGB Conc 34.7 g/dL (31.5-36.5); Mean Corpuscular Volume 95 fL (80-100); NEUTROPHILS ABSOLUTE AUTO 3.51 K/mm3 (1.96-9.15); NEUTROPHILS PERCENT AUTO 62 % (41-73); Platelet Count 181 K/mm3 (150-400); RDW Coefficient Variation 12.5 % (11.7-14.2); RDW Standard Deviation 43.2 fL (35.1-46.3); Red Blood Cell Count 4.22 M/mm3 (4.30-5.90); White Blood Cell Count 5.69 K/mm3 (4.00-11.30)
[2023-06-08 22:05] LABS: Glutamyl Transpeptidase, GGT 93 U/L (15-85)
[2023-06-08 22:09] LABS: Alanine Aminotransfer (ALT/SGP 64 U/L (12-78); Albumin/Globulin Ratio 1.1 (0.8-1.8); Alk Phos 71 U/L (50-136); Anion Gap 7 mmol/L (6-16); Aspartate Aminotrans (AST/SGOT 45 U/L (12-37); Bilirubin, Total 0.7 mg/dL (0.1-1.0); Blood Urea Nitrogen 9 mg/dL (8-24); Bun/Creatinine Ratio 9.1 (12.0-20.0); CO2, Blood 26 mmol/L (21-32); Calcium, Blood 8.8 mg/dL (8.5-10.1); Chloride, Blood 103 mmol/L (98-108); Cholesterol 156 mg/dL (50-200); Creatinine, Blood 0.99 mg/dL (0.60-1.20); Globulin, Blood 3.5 g/dL (2.2-4.0); Glomerular Filtration Rate 84 (60-); Glucose, Blood 98 mg/dL (70-99); HDL Cholesterol 77 mg/dL (>39); LDL/HDL RATIO 0.9; Low Density Lipoprotein Chol 67 mg/dL (0-110); Sodium, Blood 136 mmol/L (136-145); Total Protein, Blood 7.5 g/dL (6.4-8.2); Triglycerides 59 mg/dL (30-160); Very Low Density Lipoprot Chol 11 mg/dL (6-32)
== END ==
LOC: LAB SHORT 13:42 → LAB 13:42
PROVIDERS: Family Medicine
DX: E55.9 Vitamin D deficiency, unspecified (principal); E78.5 Hyperlipidemia, unspecified; I10 Essential (primary) hypertension
CPT/HCPCS: 80053; 80061; 82306; 82977; 85025

== ENCOUNTER → 2025-05-01 | Outpatient (CLI) | payer MEDICARE, OTHER ==
[2025-05-01 18:30] LABS: BASOPHILS ABSOLUTE AUTO 0.06 K/mm3 (0.00-0.23); BASOPHILS PERCENT AUTO 1 % (0-2); EOSINOPHILS ABSOLUTE AUTO 0.02 K/mm3 (0.00-0.68); EOSINOPHILS PERCENT AUTO 0 % (0-6); Hematocrit 43.5 % (37.0-53.0); Hemoglobin 15.4 g/dL (13.5-17.5); IMMATURE GRAN ABSOLUTE AUTO 0.04 K/mm3 (0.00-0.10); IMMATURE GRAN PERCENT AUTO 1 % (0-1); LYMPHOCYTES ABSOLUTE AUTO 1.49 K/mm3 (0.84-5.20); LYMPHOCYTES PERCENT AUTO 20 % (21-46); MONOCYTES ABSOLUTE AUTO 0.71 K/mm3 (0.16-1.47); MONOCYTES PERCENT AUTO 9 % (4-13); Mean Corpuscular HGB Conc 35.4 g/dL (31.5-36.5); Mean Corpuscular Volume 96 fL (80-100); NEUTROPHILS ABSOLUTE AUTO 5.30 K/mm3 (1.96-9.15); NEUTROPHILS PERCENT AUTO 70 % (41-73); NRBC ABSOLUTE 0.00 K/mm3 (0.00-0.02); NRBC Auto 0.0 /100 WBC (0.0-0.2); Platelet Count 183 K/mm3 (150-400); RDW Coefficient Variation 12.2 % (11.7-14.2); RDW Standard Deviation 42.3 fL (35.1-46.3)
[2025-05-01 21:47] LABS: Alanine Aminotransfer (ALT/SGP 98 U/L (12-78); Albumin, Blood 3.9 g/dL (3.4-5.0); Albumin/Globulin Ratio 1.0 (0.8-1.8); Anion Gap 11 mmol/L (3-11); Aspartate Aminotrans (AST/SGOT 60 U/L (12-37); Bilirubin, Total 1.1 mg/dL (0.1-1.0); Blood Urea Nitrogen 6 mg/dL (8-24); CHOL/HDL RATIO 1.6; CO2, Blood 24 mmol/L (21-32); Calcium, Blood 9.4 mg/dL (8.5-10.1); Chloride, Blood 99 mmol/L (98-108); Cholesterol 149 mg/dL (50-200); Creatinine, Blood 0.83 mg/dL (0.60-1.20); Globulin, Blood 3.9 g/dL (2.2-4.0); Glucose, Blood 102 mg/dL (70-99); HDL Cholesterol 92 mg/dL (>39); LDL/HDL RATIO 0.5; Low Density Lipoprotein Chol 43 mg/dL (0-110); PSA, %Free 28.9 %; PSA, Free 1.580 ng/mL; Potassium, Blood 3.7 mmol/L (3.5-5.5); Prostate Specific Antigen 5.470 ng/mL (0.000-4.000); Sodium, Blood 130 mmol/L (136-145); Thyroid Stimulating Hormone 2.800 uIU/mL (0.360-4.800); Total Protein, Blood 7.8 g/dL (6.4-8.2); Triglycerides 69 mg/dL (30-160); Very Low Density Lipoprot Chol 13 mg/dL (6-32)
== END ==
LOC: LAB SHORT 17:11 → LAB 17:11
PROVIDERS: Family Medicine
DX: I10 Essential (primary) hypertension (principal); E55.9 Vitamin D deficiency, unspecified; R97.20 Elevated prostate specific antigen [PSA]
CPT/HCPCS: 80053; 80061; 82306; 84153; 84154; 84443; 85025

== ENCOUNTER → 2025-05-15 | Outpatient (CLI) | payer MEDICARE, OTHER ==
[2025-05-16 01:49] LABS: Alanine Aminotransfer (ALT/SGP 93.0 U/L (12-78); Albumin, Blood 3.9 g/dL (3.4-5.0); Albumin/Globulin Ratio 1.1 (0.8-1.8); Anion Gap 9.0 mmol/L (3-11); Aspartate Aminotrans (AST/SGOT 53.0 U/L (12-37); Bilirubin, Total 1.3 mg/dL (0.1-1.0); Blood Urea Nitrogen 7.0 mg/dL (8-24); CO2, Blood 29.0 mmol/L (21-32); Calcium, Blood 9.4 mg/dL (8.5-10.1); Chloride, Blood 98.0 mmol/L (98-108); Creatinine, Blood 0.93 mg/dL (0.60-1.20); Globulin, Blood 3.4 g/dL (2.2-4.0); Glucose, Blood 94.0 mg/dL (70-99); Potassium, Blood 3.9 mmol/L (3.5-5.5); Sodium, Blood 132.0 mmol/L (136-145); Total Protein, Blood 7.3 g/dL (6.4-8.2)
[2025-05-16 19:45] LABS: HEPATITIS A ANTIBODIES, TOTAL Positive (Negative)
== END ==
LOC: LAB 13:45 → LAB SHORT 13:45
PROVIDERS: Family Medicine
DX: R74.8 Abnormal levels of other serum enzymes (principal)
CPT/HCPCS: 80053; 86708; 87340; 87902